=== PATIENT | female | born 1950 | race Caucasian/White ===

== ENCOUNTER 2023-07-11 08:51 | Emergency (ER) | payer MEDICARE, OTHER, SELFPAY ==
[2023-07-11 08:56] VITALS: BP 138/77; PULSE 75; RESP 18; TEMP 36.6; O2SAT 98; BMI 33.5
--- NOTE | 2023-07-11 09:30 | ED.GENADULT ---
HPI - General Adult General Date Seen: 07/11/23 Chief complaint: Epistaxis/Nosebleed Stated complaint: Light headed Time Seen by Provider: 07/11/23 09:29 History of Present Illness HPI narrative: 73-year-old female presenting to the ER this morning for evaluation of epistaxis. She woke up this morning with a bloody nose. 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 It sounds like her Bibiana's is well controlled for the past several years. [place] screening CT recently, her doctors at [facility] diagnosed her with nonspecific interstitial pneumonia and of start her on prednisone and mycophenolate help treat that. She really did not notice any symptoms from her an SI P prior to initiation of treatment last week. She has been doing well. She also has history of GERD and was told by her doctors at [facility] not to eat or drink after dinnertime to help reduce her nighttime reflux. She recalls that she did have a brief self-limited nosebleed from her left nostril a couple of weeks ago, prior to starting on her new medications. She says that she woke up this morning in bed with bleeding from her left nostril. It was fairly brisk dark blood. It was concerning to her and made her quite worried and anxious. She went to the bathroom. She tipped her head back and try to stop the bleeding. The bleeding did stop after a few minutes. Subsequently she had an episode where she coughed up some phlegm and tinged with blood and then a bloody glob of phlegm. She really has not had any other cough or trouble breathing or other symptoms. No fever. After that she began to feel lightheaded. She is not sure she is lightheaded from blood loss or simply because she is dehydrated. She had not had time to drink any fluid this morning and had not had anything by mouth since dinnertime yesterday (because of her restriction for her GERD). No other trouble with her nose. No recent nasal congestion. No cold symptoms. No cough. No fever. No nasal trauma. She does not take any anticoagulants. No other unusual bleeding or bruising. Related Data Home Medications Medication Instructions Recorded Confirmed SMZ-TMP DS 07/11/23 mycophenolate mofetil 500 mg 500 mg PO BID 07/11/23 07/11/23 tablet (CellCept) prednisone 10 mg tablet 10 mg PO DAILY 07/11/23 07/11/23 simvastatin 40 mg tablet 40 mg PO DAILY 07/11/23 07/11/23 Allergies Allergy/AdvReac Type Severity Reaction Status Date / Time No Known Drug Allergies Allergy Verified 07/11/23 09:02 [facility] Social History Smoking Status: Never smoker Do you use any of these nicotine containing products: None How often do you have a drink containing alcohol: never How often do you have six or more drinks on one occasion: Never AUDIT-C Alcohol total score: 0 Non-prescribed substance use: denies use service: No Exam Narrative: Exam Narrative: Constitutional: Appears well-developed and well-nourished. Alert. Conversant. Non toxic. HENT: Head: Atraumatic. Nose: Externa Nose normal. Right nares normal. Left nares: There is a small area of fresh scab on the septal mucosa. No active bleeding. No other lesions. No evidence for septal deviation. No septal perforation. I do not see any polyps. Mouth/Throat: Oral mucosa is clear and moist. no trismus. Pharynx normal. Tonsils symmetric. No tonsillar enlargement, erythema, or exudate. No bleeding down the posterior oropharynx. Eyes: Conjunctivae normal. EOM normal. Pupils equal, round, and reactive to light. No scleral icterus. Neck: Normal range of motion. Neck supple. No tracheal deviation present. Cardiovascular: Normal rate, regular rhythm. No gallop. No friction rub. No murmur heard. Normal capillary Pulmonary/Chest: Effort normal. No stridor. No respiratory distress. No wheezes. No rales. No rhonchi Musculoskeletal: RUE: Normal range of motion. No tenderness. No deformity LUE: Normal range of motion. No tenderness. No deformity RLE: Normal range of motion. No edema. No tenderness. No deformity LLE: Normal range of motion. No edema. No tenderness. No deformity Neurological: Alert and oriented to person, place, and time. Normal strength. CN II-VII intact. No sensory deficit. GCS eye subscore is 4. GCS verbal subscore is 5. GCS motor subscore is 6. Normal coordination Skin: Skin is warm and dry. No rash noted. No pallor. Normal capillary refill. Psychiatric: Normal mood. Very pleasant. Mildly anxious and is concerned about the recent nose bleed.. Const: Vital Signs, click to edit/add: Vital Signs - 24 hr 07/11/23 08:56 Temperature 97.9 F Pulse Rate [Right Pulse Oximeter] 75 Respiratory Rate 18 Blood Pressure [Ri ght Upper Arm] 138/77 Pulse Oximetry 98 Oxygen Delivery Me thod Room Air Course Vital Signs Vital signs: Initial Vital Signs Temperature 97.9 F 07/11/23 08:56 Temperature Source Temporal Artery Scan 07/11/23 08:56 Pulse Rate 75 07/11/23 08:56 Pulse Rhythm Regular 07/11/23 08:56 Respiratory Rate 18 07/11/23 08:56 Blood Pressure 138/77 07/11/23 08:56 Blood Pressure Mean 97 07/11/23 08:56 Blood Pressure Position Sitting 07/11/23 08:56 Pulse Oximetry 98 07/11/23 08:56 Oxygen Delivery Method Room Air 07/11/23 08:56 Vital Signs Temperature 97.9 F 07/11/23 08:56 Pulse Rate 75 07/11/23 08:56 Respiratory Rate 18 07/11/23 08:56 Blood Pressure 138/77 07/11/23 08:56 Pulse Oximetry 98 07/11/23 08:56 Oxygen Delivery Method Room Air 07/11/23 08:56 Temperature 97.9 F 07/11/23 08:56 Pulse Rate 75 07/11/23 08:56 Respiratory Rate 18 07/11/23 08:56 Blood Pressure 138/77 07/11/23 08:56 Pulse Oximetry 98 07/11/23 08:56 Oxygen Delivery Method Room Air 07/11/23 08:[address] [facility] Narrative Medical decision making narrative: Pleasant 73-year-old female on prednisone and mycophenolate to treat nonspecific interstitial pneumonia (thought to be autoimmune by [facility]) now present in the ER today with an episode of epistaxis from her left naris. In terms of the epistaxis , I can see a source of bleeding on the left nasal septum. It is already well scabbed over and no longer bleeding. We observed the patient here in the ER and she had no recurrent bleeding. At this point I do not think she requires cauterization, packing, or further intervention. Would recommend that we pursue watchful waiting. Discussed strategies to hydrate her nasal mucosa including humidifier, nasal saline, antibiotic ointment. Avoid nose picking. We discussed strategy that if she does have recurrent bleeding she can follow. Precautions for return to the ER reviewed. Patient is agreeable. She is not anticoagulated. Labs show a normal hemoglobin and platelet count. Actually hemoglobin is hemoconcentrated, likely from dehydration. She was told by her doctors at [facility] that she should not eat or drink anything after supper time every day so she typically will go 12 hours with and p.o. every night. I suspect this is likely leading to dehydration which is probably causing her lightheadedness. She did tolerate oral fluids here in the ER and felt better. Recommended that she should orally hydrate and that she should at least drink some water before bed to help avoid dehydration and her friend, Corey, consult her to drink more water throughout the day as well. She will follow-up with her doctors at [facility] on for repeat lab check. Lab Data Labs: Lab Results 07/11/23 Range/Units 10:17 WBC 15.21 H (4.50-11.00) K/uL RBC 5.32 H (4.00-5.20) m/uL Hgb 15.9 (12.0-16.0) gm/dL Hct 50.0 (33.0-51.0) % MCV 94 (80-100) fL MCH 30 (26-34) pg MCHC 32 (32-36) gm/dL RDW Coeff of Quiana 14.7 (11.5-15.5) % Plt Count 246 (140-440) K/uL Neut % (Auto) 61.1 (42.0-72.0) % Lymph % (Auto) 27.3 (20-44) % [place] % (Auto) 9.0 (0.0-11.0) % Eos % (Auto) 0.6 (0.0-7.0) % Baso % (Auto) 0.1 (0.0-3.0) % Neut # (Auto) 9.30 H (1.7-7.0) K/uL Lymph # (Auto) 4.20 H (0.90-2.90) K/uL [place] # (Auto) 1.40 H (0.00-0.90) K/UL Eos # (Auto) 0.10 (0.00-0.50) K/uL Baso # (Auto) 0.00 (0.00-0.30) K/uL Abs Immat Gran (auto) 0.30 (0.00-0.30) K/uL Imm/Tot Granulo (auto) 1.9 % Discharge Plan Discharge Clinical Impression: Acute dehydration, Epistaxis Patient Disposition: Home, Self-Care Condition: Stable Instructions: Nosebleed (ED) Additional Instructions: As we discussed, if your nose starts to bleed again please go to the bathroom and tip her head forward so that the blood comes out the front. Apply direct pressure and squeeze the front of (soft close) of your nose. Apply direct pressure for 10 minutes. If the bleeding does not stop after that, continue to hold pressure and come back to the ER to be rechecked Please use a humidifier or nasal saline and some antibiotic ointment or some Vaseline inside your nose to help keep the nasal mucosa moist. This will help your nose heal and prevent it from bleeding again Please continue on your other medications for now. Try to drink plenty of fluids and stay hydrated. Follow-up with your doctor at [facility] for your recheck on . Prescriptions: No Action mycophenolate mofetil [CellCept] 500 mg tablet 500 mg PO BID simvastatin 40 mg tablet 40 mg PO DAILY SMZ-TMP DS prednisone 10 mg tablet 10 mg PO DAILY Follow Up/Referrals: Provider,Not a Local [Primary Care Provider] - Stand Alone Forms: [employer] Info Instructions
[2023-07-11 10:27] LABS: Basophils Percent Auto 0.1 % (0.0-3.0); Eosinophils Percent Auto 0.6 % (0.0-7.0); Hemoglobin* 15.9 gm/dL (12.0-16.0); Immature Granulocytes Pct Auto 1.9 %; Lymphocytes Percent Auto 27.3 % (20-44); Mean Corpuscular HGB Conc 32 gm/dL (32-36); Mean Corpuscular Hemoglobin 30 pg (26-34); Mean Corpuscular Volume 94 fL (80-100); Neutrophils Percent Auto 61.1 % (42.0-72.0); Platelet Count* 246 K/uL (140-440); RDW Coefficient of Variation % 14.7 % (11.5-15.5); Red Blood Count 5.32 m/uL (4.00-5.20); White Blood Count* 15.21 K/uL (4.50-11.00)
[2023-07-11 10:53] LABS: Slide Review Reflex No
== END 2023-07-11 11:18 | disposition home or self-care (01) ==
PROVIDERS: Emergency Provider Emergency Medicine
DX: R04.0 Epistaxis (principal); E86.0 Dehydration
CPT/HCPCS: 36415; 85025; 99283

== ENCOUNTER 2023-11-15 10:44 | Emergency (ER) | payer MEDICARE, OTHER, SELFPAY ==
[2023-11-15] VITALS (52 sets, daily range): BP systolic 94–119; BP diastolic 56–78; PULSE 102–123; RESP 21–32; TEMP 36.4–37; O2SAT 76–99; BMI 33.6
--- NOTE | 2023-11-15 11:27 | CRLHL7_ITS ---
For Patients: As a result of the Century Cures Act, medical imaging exams and procedure reports are released immediately into your electronic medical record. You may view this report before your referring provider. If you have questions, please contact your health care provider. INDICATION: Fall. TECHNIQUE: CT of the cervical spine was performed without intravenous contrast. COMPARISON: None. FINDINGS: Alignment: 1 millimeter of retrolisthesis of C3 on C4. Vertebrae: Vertebral bodies and posterior elements are intact without acute fracture. Moderate degenerative changes. Extra-vertebral soft tissues: Normal. Visualized brain: Please see same-day separately dictated CT. Moderate mucosal thickening of the sphenoid sinus. Additional comment: None. IMPRESSION: 1. No acute displaced fracture or malalignment of the cervical spine. 2. 1 millimeter of retrolisthesis of C3 on C4 is favored to be degenerative. Please note that all CT scans at this facility use dose modulation, iterative reconstruction, and/or weight-based dosing when appropriate to reduce radiation dose to as low as reasonably achievable. Dictated by Navdeep Salazar MD @ 11/15/2023 1:27:10 PM (Electronically Signed)
--- NOTE | 2023-11-15 11:27 | CRLHL7_ITS ---
For Patients: As a result of the Century Cures Act, medical imaging exams and procedure reports are released immediately into your electronic medical record. You may view this report before your referring provider. If you have questions, please contact your health care provider. INDICATION: Hypoxia. Positive DVT. History of NSIP. TECHNIQUE: CT chest PE was acquired with 95 cc Isovue 370 IV contrast. COMPARISON: None. FINDINGS: Heart and vasculature: Large pulmonary emboli burden extending from the bilateral main pulmonary arteries, into the lobar and segmental pulmonary arteries of the left upper, lingula, left lower, posterior right upper, right middle, and right lower lobe. There is evidence of right heart strain, with approximate RV to LV ratio measuring up to 2.0. Lungs and pleura: Subpleural fibrotic changes, compatible with history of NSIP. No evidence of pulmonary infarct. Thyroid and lower neck: No suspicious thyroid nodule. Mediastinum/mila: No lymphadenopathy. Chest wall: No axillary lymphadenopathy. Upper abdomen: No acute abnormality. Focal atrophy at the pancreatic body, with no definite mass identified. Bones: Multilevel degenerative changes of the spine. No suspicious/aggressive focal osseous lesion. IMPRESSION: 1. Large pulmonary emboli burden with involvement of the bilateral main pulmonary arteries, [id number]. 2. Evidence of significant right heart strain. 3. No evidence of pulmonary infarct. Subpleural fibrotic changes. Please note that all CT scans at this facility use dose modulation, iterative reconstruction, and/or weight-based dosing when appropriate to reduce radiation dose to as low as reasonably achievable. Dictated by Nyla Hernandez MD @ 11/15/2023 1:32:51 PM (Electronically Signed)
--- NOTE | 2023-11-15 11:27 | CRLHL7_ITS ---
For Patients: As a result of the Century Cures Act, medical imaging exams and procedure reports are released immediately into your electronic medical record. You may view this report before your referring provider. If you have questions, please contact your health care provider. INDICATION: Fall. TECHNIQUE: CT head without contrast. COMPARISON: None. FINDINGS: ventricles are symmetric. Basal cisterns patent. No sulcal effacement. The ventricles, cisterns, and other CSF containing spaces are symmetrically prominent secondary to diffuse parenchymal volume loss but are otherwise normal as to shape and position. BRAIN: Diffuse cerebral volume loss. Periventricular and subcortical hypodensities likely secondary to age-related microvascular ischemic changes. No acute infarct or hemorrhage. VASCULAR: Calcification of the V4 segments of the left vertebral artery. EXTRA-AXIAL: Extra-axial spaces are normal. EXTRA-CRANIAL: Soft tissue swelling along the left forehead. No acute calvarial or facial fractures. Sphenoid sinus mucosal thickening. Mastoids are clear. Orbits are normal. IMPRESSION: No acute intracranial abnormality. Soft tissue swelling along the left forehead without underlying fracture. Please note that all CT scans at this facility use dose modulation, iterative reconstruction, and/or weight-based dosing when appropriate to reduce radiation dose to as low as reasonably achievable. Dictated by Cathy Hendrickson MD @ 11/15/2023 1:28:52 PM (Electronically Signed)
--- NOTE | 2023-11-15 11:27 | CRLHL7_ITS ---
For Patients: As a result of the Century Cures Act, medical imaging exams and procedure reports are released immediately into your electronic medical record. You may view this report before your referring provider. If you have questions, please contact your health care provider. INDICATION: Fall TECHNIQUE: CT of the face and paranasal sinuses was performed without IV contrast. COMPARISON: None. FINDINGS: Bones: Normal. Orbits: Normal. Paranasal sinuses: Moderate mucosal thickening of the sphenoid sinus with associated frothy material. Mastoid air cells: Postsurgical changes from left mastoidectomy. Soft tissues: Normal. Visualized brain: Normal. Additional comments: Mild left frontal scalp swelling. IMPRESSION: 1. No acute displaced facial fractures. 2. Moderate mucosal thickening of the sphenoid sinus with associated frothy material may represent acute sinusitis. Please note that all CT scans at this facility use dose modulation, iterative reconstruction, and/or weight-based dosing when appropriate to reduce radiation dose to as low as reasonably achievable. Dictated by Navdeep Salazar MD @ 11/15/2023 1:32:55 PM (Electronically Signed)
[2023-11-15] MEDS: LACTATED RINGERS 1000 ML 1,000 ML IV (11:52)
--- NOTE | 2023-11-15 11:57 | CRLHL7_ITS ---
For Patients: As a result of the Century Cures Act, medical imaging exams and procedure reports are released immediately into your electronic medical record. You may view this report before your referring provider. If you have questions, please contact your health care provider. INDICATION: Leg pain and swelling TECHNIQUE: Ultrasound venous duplex lower right extremity. Compression venous exam was performed using nagel-scale, color Doppler, and spectral Doppler imaging. COMPARISON: None. FINDINGS: Right lower extremity: Common femoral vein: Patent and compressible. Greater saphenous vein: Patent. Deep femoral vein: Patent. Femoral vein: Acute occlusive noncompressible thrombus in the mid to distal superficial femoral vein. Popliteal vein: Acute occlusive noncompressible thrombus. Posterior tibial vein: Not visualized. Peroneal vein: Acute occlusive noncompressible thrombus. Contralateral left common femoral vein: Patent and compressible. IMPRESSION: Acute occlusive deep venous thrombosis involving the right mid to distal superficial femoral vein, right popliteal vein, and right peroneal veins. Posterior tibial veins were not visualized. Dictated by Nyla Hernandez MD @ 11/15/2023 1:11:09 PM (Electronically Signed)
[2023-11-15 12:11] LABS: Basophils Percent Auto 0.1 % (0.0-3.0); Eosinophils Percent Auto 0.1 % (0.0-7.0); Hematocrit 37.9 % (33.0-51.0); Hemoglobin* 11.8 gm/dL (12.0-16.0); Immature Granulocytes Pct Auto 4.6 %; Lymphocytes Percent Auto 5.6 % (20-44); Mean Corpuscular HGB Conc 31 gm/dL (32-36); Mean Corpuscular Hemoglobin 30 pg (26-34); Mean Corpuscular Volume 97 fL (80-100); Monocytes Percent Auto 9.1 % (0.0-11.0); Neutrophils Percent Auto 80.5 % (42.0-72.0); Platelet Count* 146 K/uL (140-440); RDW Coefficient of Variation % 14.2 % (11.5-15.5); Red Blood Count 3.91 m/uL (4.00-5.20); White Blood Count* 11.14 K/uL (4.50-11.00)
[2023-11-15 12:18] LABS: Slide Review Reflex No
[2023-11-15 12:21] LABS: PCR FLU A Negative PCR FLU A (Negative); PCR FLU B Negative PCR FLU B (Negative); PCR RSV Negative PCR RSV (Negative); SARS PCR* Negative SARS-CoV-2 (Negative)
[2023-11-15 12:24] LABS: Albumin* 3.2 g/dL (3.3-5.0); Chloride* 99 mmol/L (96-114)
[2023-11-15 12:25] LABS: Potassium* 3.9 mmol/L (3.6-5.1); Sodium* 129 mmol/L (135-149)
[2023-11-15 12:27] LABS: Alkaline Phosphatase* 64 U/L (40-150); Anion Gap 8 mEq/L (7-15); Aspartate Amino Transferase* 24 U/L (12-35); Blood Urea Nitrogen* 25 mg/dL (7-30); Carbon Dioxide* 22 mmol/L (20-32); Creatinine* 1.4 mg/dL (0.5-1.5); Est. Creatinine Clearance* 30.44; Estimated Glomerular Filt Rate 39 ml/min; Total Protein* 5.1 g/dL (6.0-8.3)
[2023-11-15 12:28] LABS: Alanine Aminotransferase* 19 U/L (4-35); Calcium* 8.7 mg/dL (8.4-10.6); Glucose* 105 mg/dL (60-115)
--- NOTE | 2023-11-15 12:30 | ED_ITS ---
HPI - General Adult General Date Seen: 11/15/23 Chief complaint: Weakness Stated complaint: Fainted at outside clinic visit Time Seen by Provider: 11/15/23 11:12 Source: patient Mode of arrival: ambulatory Limitations: no limitations History of Present Illness HPI narrative: Patient is a 73-year-old female presenting to the emergency department for an episode of syncope. She was returning from an appointment when she states she started to feel very lightheaded and felt like she was going to pass out. She is trying to make it to her car but could not and states she fell unconscious an d fell to the ground. 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 She states the lightheadedness has improved but she has been feeling some lightheadedness for the past few weeks. Does states she did not eat and drink anything this morning because she was supposed to be NPO for her blood test. When EMS arrived she was satting 76% on room air and she was placed on oxygen. 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 She is not feeling short of breath at this time but does states she feels like her shortness of breath has been worsening over the past few weeks. Denies fevers, chills, chest pain, abdominal pain, diarrhea, constipation, dizziness, weakness, numbness. She also has Basilia's granulomatosis. She does have a history set of blood clot several years ago that they believe was a medication she was on at that time. Related Data Home Medications ?Medication ?Instructions ?Recorded ?Confirmed mycophenolate mofetil 500 mg 1,500 mg PO BID 07/11/23 07/11/23 tablet (CellCept) prednisone 10 mg tablet 10 mg PO DAILY 07/11/23 07/11/23 simvastatin 40 mg tablet 40 mg PO DAILY 07/11/23 07/11/23 sulfamethoxazole 400 1 tab PO DAILY 11/15/23 mg-trimethoprim 80 mg tablet Allergies Allergy/AdvReac Type Severity Reaction Status Date / Time No Known Drug Allergies Allergy Verified 07/11/23 09:02 Review of Systems Status of ROS: Reports: 10 or more systems reviewed and unremarkable except as noted in History and below PFSH PFSH Social History Smoking Status: Never smoker Do you use any of these nicotine containing products: None How often do you have a drink containing alcohol: never How often do you have six or more drinks on one occasion: Never AUDIT-C Alcohol total score: 0 Non-prescribed substance use: denies use service: No Exam Narrative: Exam Narrative: Const: Well-nourished, Well-developed, in mild distress Eyes: PERRL, no conjunctival injection, and symmetrical lids HENT: Abrasions noted to the left side her face along the nose and right below left eye. Moist mucous membranes. No palpable skull fractures. Neck: Symmetric, trachea midline, No thyromegaly. CVS: Tachycardic, No murmurs or gallops. Peripheral pulses 2+ and equal in all extremities RESP: Unlabored respiratory effort. Clear to auscultation bilaterally. GI: Nontender/Nondistended, No rebound or guarding. MSK:Extremities w/o deformity, Normal Active ROM Skin: Warm, Dry. No rashes or lesions. Neuro: Normal Muscle tone, No focal neurological deficits. Psych: Awake, Alert, & Oriented x3. Appropriate mood and affect. Const: Vital Signs, click to edit/add: Vital Signs - 24 hr 11/15/23 10:45 11/15/23 10:50 11/15/23 11:03 Temperature 97.6 F Pulse Rate Pulse Rate [Right Pulse Oximeter] 108 H Respiratory Rate 32 H Blood Pressure Blood Pressure [Ri ght Upper Arm] 113/65 Pulse Oximetry 76 L 92 76 L Oxygen Delivery Me thod Room Air OxyMask Room Air Oxygen Flow Rate 5 11/15/23 11:30 11/15/23 11:32 11/15/23 11:45 Temperature Pulse Rate 110 H 115 H 112 H Pulse Rate [Right Pulse Oximeter] Respiratory Rate Blood Pressure 109/66 Blood Pressure [Ri ght Upper Arm] Pulse Oximetry 94 94 92 Oxygen Delivery Me thod Oxygen Flow Rate 11/15/23 11:46 11/15/23 11:47 11/15/23 11:47 Temperature Pulse Rate 109 H 112 H Pulse Rate [Right Pulse Oximeter] Respiratory Rate Blood Pressure 119/68 Blood Pressure [Ri ght Upper Arm] Pulse Oximetry 94 94 94 Oxygen Delivery Me thod Nasal Cannula Non Rebreather Mask Oxygen Flow Rate 2 11/15/23 12:00 11/15/23 12:01 11/15/23 12:01 Temperature Pulse Rate 107 H 111 H Pulse Rate [Right Pulse Oximeter] Respiratory Rate Blood Pressure 103/63 Blood Pressure [Ri ght Upper Arm] Pulse Oximetry 95 95 95 Oxygen Delivery Me thod Nasal Cannula Oxygen Flow Rate 2 11/15/23 12:02 11/15/23 12:15 11/15/23 12:16 Temperature Pulse Rate 108 H 107 H 106 H Pulse Rate [Right Pulse Oximeter] Respiratory Rate Blood Pressure 98/63 Blood Pressure [Ri ght Upper Arm] Pulse Oximetry 95 96 97 Oxygen Delivery Me thod Oxygen Flow Rate 11/15/23 12:30 11/15/23 12:31 11/15/23 12:31 Temperature Pulse Rate 117 H 117 H 117 H Pulse Rate [Right Pulse Oximeter] Respiratory Rate Blood Pressure 100/72 100/72 Blood Pressure [Ri ght Upper Arm] Pulse Oximetry 98 98 98 Oxygen Delivery Me thod Oxygen Flow Rate 11/15/23 12:32 11/15/23 13:10 11/15/23 13:15 Temperature Pulse Rate 114 H 111 H 111 H Pulse Rate [Right Pulse Oximeter] Respiratory Rate Blood Pressure 102/64 Blood Pressure [Ri ght Upper Arm] Pulse Oximetry 98 89 90 Oxygen Delivery Me thod Oxygen Flow Rate 11/15/23 13:16 11/15/23 13:17 11/15/23 13:17 Temperature Pulse Rate 107 H 106 H Pulse Rate [Right Pulse Oximeter] Respiratory Rate Blood Pressure 94/65 Blood Pressure [Ri ght Upper Arm] Pulse Oximetry 92 92 92 Oxygen Delivery Me thod Nasal Cannula Oxygen Flow Rate 2 11/15/23 13:30 11/15/23 13:31 Temperature Pulse Rate 102 H 105 H Pulse Rate [Right Pulse Oximeter] Respiratory Rate Blood Pressure 108/70 Blood Pressure [Ri ght Upper Arm] Pulse Oximetry 92 94 Oxygen Delivery Me thod Oxygen Flow Rate Course Vital Signs Vital signs: Initial Vital Signs Pulse Oximetry 76 L 11/15/23 10:45 Oxygen Delivery Method Room Air 11/15/23 10:45 Vital Signs Pulse Oximetry 76 L 11/15/23 10:45 Oxygen Delivery Method Room Air 11/15/23 10:45 Temperature 97.6 F 11/15/23 11:03 Pulse Rate 105 H 11/15/23 13:31 Respiratory Rate 32 H 08/20/24 11:03 Blood Pressure 108/70 11/15/23 13:31 Pulse Oximetry 94 11/15/23 13:31 Oxygen Delivery Method Nasal Cannula 11/15/23 13:17 Oxygen Flow Rate 2 11/15/23 13:17 Medications Administered Medications: Generic Name Dose Route Start Last Admin Trade Name Freq PRN Reason Stop Dose Admin Heparin Sodium/Dextrose 25,000 unit in 500 mls @ 0 mls/hr 11/15/23 15:00 11/15/23 15:26 Heparin IV 1,500 unit/hr .Q0M NANDA 30 mls/hr Administration Protocol Per Protocol Discontinued Medications Generic Name Dose Route Start Last Admin Trade Name Freq PRN Reason Stop Dose Admin Heparin Sodium (Porcine) 7,100 unit 11/15/23 14:50 11/15/23 15:21 Heparin 5,000 Unit/0.5 Ml Inj 80 unit/kg (7100 unit) 11/15/23 14:51 7,100 unit IVP Administration ONCE ONE Lactated Ringer's 1,000 mls @ 1,000 mls/hr 11/15/23 11:26 11/15/23 13:27 Lactated Ringers 1000 Ml IV 11/15/23 12:25 Infused .Q1H ONE Infusion Medical Decision Making MDM Narrative Medical decision making narrative: Patient is a 73-year-old female presenting to emergency department for S syncopal episode. She was hypoxic on arrival and oxygen was placed. Concerns at this time include coronary artery disease, PE, aortic dissection, aortic aneurysm, orthostatic hypotension. With her low right lower extremity swollen under history previous blood clot PE is high on my differential at this time and I will do a right lower extremity ultrasound along with a CTA of the chest. Will also do a troponin, EKG, CBC, CMP, BNP, COVID/flu/RSV. She states she has not eating or drinking much at all today because she had to stay NPO for her blood work so she is feeling dehydrated another L of lactated Ringer's were ordered. Lab work returned showing no acute concerning abnormalities in the CBC other than a hemoglobin 11.8 previously she was 15.9 in June of 2023. The CMP shows no obvious abnormalities other than a low sodium at 129. This is not quite low enough that I believe would be causing her symptoms. A troponin came back at 0.14 but EKG shows no obvious signs of NM. ultrasound the right lower extremity shows extensive blood clots. CT scans of the head, face, cervical spine were ordered because of the fall. These all returned showing no acute concerning abnormalities. There was small more retrolisthesis of the cervical spine but this is likely degenerative and she is not having any neck pain at this time. CTA shows a large pulmonary emboli ordered involving the bilateral main pulmonary arteries with right greater than left. There is evidence of significant right heart strain. This is likely was causing her elevated troponin. Since she is a male patient I spoke to the [facility] about her. I spoke to the ICU provider and explain her current vital signs and story and at this time he does not believe she requires thrombolytics. I am in agreement. I then spoke to the fall my knowledge ED team who accepted her for transfer to the [facility]. Will start her on heparin per ICU providers recommendation Lab Data Labs: Lab Results 11/15/23 11/15/23 Range/Units 11:39 11:54 WBC 11.14 H (4.50-11.00) K/uL RBC 3.91 L (4.00-5.20) m/uL Hgb 11.8 L (12.0-16.0) gm/dL Hct 37.9 (33.0-51.0) % MCV 97 (80-100) fL MCH 30 (26-34) pg MCHC 31 L (32-36) gm/dL RDW Coeff of Quiana 14.2 (11.5-15.5) % Plt Count 146 (140-440) K/uL Neut % (Auto) 80.5 H (42.0-72.0) % Lymph % (Auto) 5.6 L (20-44) % [place] % (Auto) 9.1 (0.0-11.0) % Eos % (Auto) 0.1 (0.0-7.0) % Baso % (Auto) 0.1 (0.0-3.0) % Neut # (Auto) 9.00 H (1.7-7.0) K/uL Lymph # (Auto) 0.60 L (0.90-2.90) K/uL [place] # (Auto) 1.00 H (0.00-0.90) K/UL Eos # (Auto) 0.00 (0.00-0.50) K/uL Baso # (Auto) 0.00 (0.00-0.30) K/uL Abs Immat Gran (auto) 0.50 H (0.00-0.30) K/uL Imm/Tot Granulo (auto) 4.6 % INR 1.12 H (0.91-1.10) Sodium 129 L (135-149) mmol/L Potassium 3.9 (3.6-5.1) mmol/L Chloride 99 (96-114) mmol/L Carbon Dioxide 22 (20-32) mmol/L Anion Gap 8 (7-15) mEq/L BUN 25 (7-30) mg/dL Creatinine 1.4 (0.5-1.5) mg/dL Estimated Creat Clear 30.44 Estimated GFR 39 ml/min Glucose 105 (60-115) mg/dL Calcium 8.7 (8.4-10.6) mg/dL Total Bilirubin 1.0 (0.1-1.5) mg/dL AST 24 (12-35) U/L ALT 19 (4-35) U/L Alkaline Phosphatase 64 (40-150) U/L Troponin I 0.14 H* (0.01-0.04) ng/mL NT-Pro-B Natriuret Pep 343 pg/mL Total Protein 5.1 L (6.0-8.3) g/dL Albumin 3.2 L (3.3-5.0) g/dL SARS-CoV-2 (PCR) Negative SARS-CoV-2 (Negative) Influenza Type A (PCR) Negative PCR FLU A (Negative) Influenza Type B (PCR) Negative PCR FLU B (Negative) RSV (PCR) Negative PCR RSV (Negative) Imaging Data CT scan head: Attestation: I have reviewed the pertinent imaging results. Radiologist's impression: No acute intracranial abnormality. Soft tissue swelling along the left forehead without underlying fracture. Please note that all CT scans at this facility use dose modulation, iterative reconstruction, and/or weight-based dosing when appropriate to reduce radiation dose to as low as reasonably achievable. Dictated by Cathy Hendrickson MD @ 11/15/2023 1:28:[address] scan face: Attestation: I have reviewed the pertinent imaging results. Radiologist's impression: 1. No acute displaced facial fractures. 2. Moderate mucosal thickening of the sphenoid sinus with associated frothy material may represent acute sinusitis. Please note that all CT scans at this facility use dose modulation, iterative reconstruction, and/or weight-based dosing when appropriate to reduce radiation dose to as low as reasonably achievable. Dictated by Navdeep Salazar MD @ 11/15/2023 1:32:[address] scan cervical spine: Attestation: I have reviewed the pertinent imaging results. Radiologist's impression: 1. No acute displaced fracture or malalignment of the cervical spine. 2. 1 millimeter of retrolisthesis of C3 on C4 is favored to be degenerative. Please note that all CT scans at this facility use dose modulation, iterative reconstruction, and/or weight-based dosing when appropriate to reduce radiation dose to as low as reasonably achievable. Dictated by Navdeep Salazar MD @ 11/15/2023 1:27:10 PM Venous US: Attestation: I have reviewed the pertinent imaging results. Radiologist's impression: Acute occlusive deep venous thrombosis involving the right mid to distal superficial femoral vein, right popliteal vein, and right peroneal veins. Posterior tibial veins were not visualized. Dictated by Nyla Hernandez MD @ 11/15/2023 1:11:09 PM CTA chest: Attestation: I have reviewed the pertinent imaging results. Radiologist's impression: 1. Large pulmonary emboli burden with involvement of the bilateral main pulmonary arteries, [id number]. 2. Evidence of significant right heart strain. 3. No evidence of pulmonary infarct. Subpleural fibrotic changes. Please note that all CT scans at this facility use dose modulation, iterative reconstruction, and/or weight-based dosing when appropriate to reduce radiation dose to as low as reasonably achievable. Dictated by Nyla Hernandez MD @ 11/15/2023 1:32:51 PM ECG Data Attestation: I personally reviewed and interpreted this ECG as follows: Interpretation: Sinus tachycardia with a rate of 112 beats per minute, left axis deviation, right bundle-branch block, large amount of artifact so difficult to describe T- waves but no obvious T-wave or ST abnormalities. Discharge Plan Discharge Clinical Impression: Pulmonary embolism Qualifiers: Pulmonary embolism type: unspecified Chronicity: acute Acute cor pulmonale presence: with acute cor pulmonale Qualified Code(s): I26.09 - Other pulmonary embolism with acute cor pulmonale DVT (deep venous thrombosis) Qualifiers: DVT location: lower extremity Affected thrombotic vein of extremity: unspecified vein of extremity Chronicity: acute Laterality: right Qualified Code(s): I82.401 - Acute embolism and thrombosis of unspecified deep veins of right lower extremity Patient Disposition: [facility] Condition: Guarded Prescriptions: No Action mycophenolate mofetil [CellCept] 500 mg tablet 1,500 mg PO BID simvastatin 40 mg tablet 40 mg PO DAILY prednisone 10 mg tablet 10 mg PO DAILY sulfamethoxazole-trimethoprim 400-80 mg tablet 1 tab PO DAILY Stand Alone Forms: [employer] Info Instructions
[2023-11-15 12:44] LABS: NT Pro B Type NatriureticPept* 343 pg/mL; Troponin I* 0.14 ng/mL (0.01-0.04)
[2023-11-15 14:58] LABS: INR 1.12 (0.91-1.10); Prothrombin Time 15.2 Seconds
[2023-11-15] MEDS: HEPARIN 5,000 UNIT/0.5 ML INJ 7100 UNIT IVP (15:21)
[2023-11-15] MEDS: HEPARIN 25,000 UNIT/500 ML BAG 30 UNIT IV (15:26)
--- NOTE | 2023-11-15 17:37 | ED.NURSE ---
Patient was transferred via [facility] with oxygen at 2L NC and heparin infusing per MAR. Daughter was with patient at time of transfer.
[2023-11-15 17:52] LABS: Appearance Urine Clear (Clear); Bilirubin Urine Negative (Negative); Blood Urine Trace-intact (Negative); Color Urine Yellow (Yellow); Glucose Urine Negative (Negative); Ketones Urine 2+ (Negative); Leukocyte Esterase Urine Negative (Negative); Nitrite Urine Negative (Negative); Protein Urine Negative (Negative); Specific Gravity Urine 1.015 (1.000-1.030); Urobilinogen Urine 0.2 (0.2-1.0); pH Urine 5.5 (5.0-8.5)
[2023-11-15 18:15] LABS: RBC Urine 0-2 (0-2); WBC Urine 0-2 (0-5)
== END 2023-11-15 17:42 | disposition short-term general hospital (02) ==
PROVIDERS: Emergency Provider Student in an Organized Health Care Education/Training Program; PCP Internal Medicine
DX: I26.99 Other pulmonary embolism without acute cor pulmonale (principal); I82.4Z1 Acute embolism and thrombosis of unspecified deep veins of right distal lower extremity
CPT/HCPCS: 36415; 70450; 70486; 71275; 72125; 80053; 81001; 83880; 84484; 85025; 85027; 85610; 85730; 87631; 93005; 93971; 96360; 99284; 99285; J1644; J7120; Q9967

== ENCOUNTER 2023-11-15 17:25 | Outpatient (CLI) | payer MEDICARE, OTHER, SELFPAY | END 2023-11-15 17:26 | disposition home or self-care (01) | LOC: AMB 11-23 01:43 | PROVIDERS: PCP Internal Medicine; Visit Provider Emergency Medicine | DX: I26.09 Other pulmonary embolism with acute cor pulmonale (principal); I82.401 Acute embolism and thrombosis of unspecified deep veins of right lower extremity | CPT/HCPCS: A0425; A0434 ==

== ENCOUNTER 2024-01-20 08:25 | Outpatient (RCR) | payer SELFPAY | END 2024-12-26 08:11 | disposition home or self-care (01) | LOC: MOW 08:25 | PROVIDERS: PCP Internal Medicine; Visit Provider Internal Medicine | DX: Z76.0 Encounter for issue of repeat prescription (principal) ==